=== PATIENT | female | born 1980 | race Caucasian/White ===

== ENCOUNTER 2019-10-11 21:09 | Inpatient (IN) | payer BC ==
[2019-10-11 21:38] VITALS: BMI 39.0
--- NOTE | 2019-10-11 22:05 | PDOC.LDHP ---
Labor and Delivery H&P HPI: Patient of Dr hale CC: Possible LOF since 0900 on/off 38 yo HX CS X 1 for failed induction. Weight was 9pounds. GDM diet controlled. Few contractions. Desires trial of labor if possible nut ok with repeat CS Review of Systems: complete ROS performed and negative as per HPI Current gestational age (weeks): 38 (4) Due date: 10/21/19 Dating criteria: last menstrual period Grav: 2 Para: 1 OB History Details: CS for suspected macrosomia and failed IOL, postrdates Current complications: gestational diabetes (A1DM) Abnormal US findings: No Current medications: pre- vitamins Previous surgical history: low tranverse CS Allergies/Adverse Reactions: Allergies Allergy/AdvReac Type Severity Reaction Status Date / Time amoxicillin Allergy Mild Rash Verified 10/11/19 21:28 Social history: none - Physical Exam Vital signs reviewed and normal: yes Abnormal vital signs: 148/90s General: NAD Heart: RRR Lungs: CTAB Abdomen: gravid Extremeties: no edema FHT: category 1 [place] contractions every: none - Vaginal Exam cm dilated: 1 Effacement: 25% Station: -3 - Assessment Suspected PROM at early term. GDM, HX macrosomia with last child 9 pounds by CS. Elevated BPs - Plan Plan: other (Discussed TOLAC vs Repeat CS. Reviewed ACOD data and inability to predict macrosomia well. SD as consequence also discussed due to her GDM. BPs also hihgh so we will check CMP, as well. Sterile Spec exam is positive for ROM by me. Amnisure still sent for protocol. Admit and patient agrees to repeat CS as not ion labor and some concern about EFW. Pt last ate at 1800. Notify Dr hale of admission.)
[2019-10-11 22:11] LABS: Amnisure Test RUPTURE DETECTED (No Rupture)
[2019-10-11 22:12] LABS: Amnisure Internal Control QC ACCEPTABLE (ACCEPTABLE)
[2019-10-11] MEDS ORDERED: Butorphanol Tartrate 1 MG/ML VIAL SLOW IVP PRN (22:13)
[2019-10-11] MEDS ORDERED: hydrALAZINE 20 MG/ML VIAL SLOW IVP PRN (22:13)
[2019-10-11] MEDS ORDERED: Promethazine HCl 25 MG/ML VIAL IM PRN ×2 (22:13→23:31)
[2019-10-11] MEDS ORDERED: Ondansetron PF 4 MG/2 ML Vial IVP PRN (22:13)
[2019-10-11] MEDS ORDERED: Lactated Ringer's 1,000 ML IV SCH (22:15)
[2019-10-11] MEDS ORDERED: Bicitra 30 ML UDCUP PO SCH (22:15)
[2019-10-11] MEDS ORDERED: Azithromycin 500 MG in Sodium Chloride 0.9% 250 ML 250 ML IVPB SCH (22:15)
[2019-10-11] MEDS ORDERED: CEFAZOLIN 2 GM in Premix Bag 1 BAG IVPB SCH (22:15)
--- NOTE | 2019-10-11 22:19 | PDOC.EVN ---
Event Note - Event Note Event Note: GBS positive: will give ABX as preop prophylaxis. Amoxcillin caused rash as child...ok for Ancef and Zmax. So, issues identified: 1. PROM...early term 2. GDM...A1DM 3. Suspected macrosomia with EFW is heavier than last child per patient estimate. 4. PIH Although TOLAC is option, may be that repeat CS is most conservative due to above factors. Patient agrees.
[2019-10-11] MEDS ORDERED: Fentanyl 100 MCG/2 ML VIAL ONE (22:39)
[2019-10-11] MEDS ORDERED: MORPHINE 5 MG/10 ML PF VIAL ONE (22:39)
[2019-10-11] MEDS ORDERED: EPHEDRINE 25 MG/5 ML SYRINGE ONE (22:40)
[2019-10-11] MEDS ORDERED: Oxytocin 10 UNITS/ML VIAL ONE (22:41)
[2019-10-11] MEDS ORDERED: Dexamethasone 4 mg/ml Vial ONE (22:41)
[2019-10-11] MEDS ORDERED: Ondansetron PF 4 MG/2 ML Vial ONE (22:41)
[2019-10-11] MEDS ORDERED: PHENYLEPHRINE-NS 100 MCG/ML 10 ML SYRINGE ONE (22:41)
[2019-10-11] MEDS ORDERED: Ketorolac Tromethamine 30 MG/ML VIAL ONE (22:41)
[2019-10-11 22:46] LABS: Hemoglobin 12.8 g/dL (12.0-16.0); Mean Corpuscular HGB CONC 34.9 g/dL (32.0-36.0); Mean Corpuscular Hemoglobin 31.1 pg (27.0-31.0); Mean Corpuscular Volume 89.2 fL (78.0-98.0); Mean Platelet Volume 9.6 fL (7.4-10.4); Platelet Count 163 thou/uL (130-400); RBC Distribution Width 12.3 % (11.5-14.5); Red Blood Cell (RBC) Count 4.12 mill/uL (4.20-5.40); White Blood Cell (WBC) Count 12.9 thou/uL (4.8-10.8)
[2019-10-11 22:58] LABS: ALT (SGPT) 14 U/L (8-55); AST (SGOT) 16 U/L (5-34); Albumin 3.5 g/dL (3.5-5.0); Alkaline Phosphatase 115 U/L (40-110); Anion Gap 12 mmol/L (10-20); BUN (Urea Nitrogen) 11 mg/dL (7.0-18.7); Bilirubin, Total 0.2 mg/dL (0.2-1.2); Calc. Creatinine Clearance 207 mL/min (70-130); Calcium 8.8 mg/dL (7.8-10.44); Carbon Dioxide 20 mmol/L (22-29); Chloride 106 mmol/L (98-107); Estimated GFR-MDRD Greater than 90; Globulin 3.1 g/dL (2.4-3.5); Glucose 117 mg/dL (70-105); Potassium 3.4 mmol/L (3.5-5.1); Protein, Total 6.6 g/dL (6.0-8.3); Sodium 135 mmol/L (136-145)
--- NOTE | 2019-10-11 23:05 | PDOC.OPDEL ---
OB Operative/Delivery Note Delivery Dr/Surgeon: Basilio Assist: Juan Daniel, PGY 3 Pre-Delivery Diagnosis: ruptured membrane (prior CS x1 declines TOLAC) Procedure/Post Delivery Dx: repeat low transverse CS Weeks gestation: 38 Anesthesia: spinal - Findings A Sex: female - Additional Findings/Plan Placenta delivered: spontaneous findings: low transverse hysterotomy without extension, normal uterus, normal tubes, normal ovaries Post delivery plan: routine recovery
[2019-10-11 23:21] LABS: HBSAg Index 0.18 S/CO (0-0.99); HIV (1/2) Antibody/Antigen Non-Reactive (NonReactive); HIV 1/2 INDEX 0.24 S/CO (<1.00); Hep B Surf Ag Non-Reactive S/CO (NonReactive)
[2019-10-11] MEDS ORDERED: diphenhydrAMINE 50 MG/ML VIAL IVP PRN (23:31)
[2019-10-11] MEDS ORDERED: Ketorolac Tromethamine 30 MG/ML VIAL IVP PRN (23:31)
[2019-10-11] MEDS ORDERED: HYDROmorphone 2 MG/ML VIAL SLOW IVP PRN (23:31)
[2019-10-11] MEDS ORDERED: Naloxone HCl 0.4 mg/ml Vial IV PRN (23:31)
[2019-10-11] MEDS ORDERED: L&D-Morphine 4 MG/ML VIAL SLOW IVP PRN (23:31)
[2019-10-11] MEDS ORDERED: Naloxone HCl 0.4 mg/ml Vial IVP PRN ×2 (23:31)
[2019-10-11] MEDS ORDERED: Meperidine HCl/PF 25 MG/ML VIAL SLOW IVP PRN (23:31)
[2019-10-11] MEDS ORDERED: Promethazine HCl 25 MG SUPP PR PRN (23:31)
[2019-10-11] MEDS ORDERED: Communication Order-Pharmacy FS SCH (23:45)
[2019-10-11] MEDS ORDERED: Ketorolac Tromethamine 30 MG/ML VIAL IVP SCH (23:45)
[2019-10-11] MEDS ORDERED: Promethazine HCl 25 MG/ML VIAL ONE (23:49)
[2019-10-12 00:08] LABS: Syphilis Antibody Nonreactive (Nonreactive); Syphilis Antibody Index 0.06 S/CO (<1.00 Non-Reactive)
[2019-10-12] MEDS ORDERED: hydrALAZINE 20 MG/ML VIAL SLOW IVP PRN (01:47)
[2019-10-12] MEDS ORDERED: diphenhydrAMINE 25 MG CAP PO PRN (01:47)
[2019-10-12] MEDS ORDERED: Bisacodyl 10 MG SUPP PR PRN (01:47)
[2019-10-12] MEDS ORDERED: Promethazine HCl 25 MG/ML VIAL IM PRN (01:47)
[2019-10-12] MEDS ORDERED: Lanolin Ointment 7 GM TUBE TOP PRN (01:47)
[2019-10-12] MEDS ORDERED: Simethicone Chewable 80 MG TAB PO PRN (01:47)
[2019-10-12] MEDS ORDERED: Acetaminophen 325 MG TAB PO PRN (01:47)
[2019-10-12] MEDS ORDERED: HYDROcodone/Acetaminophen 5/325 mg Tablet PO PRN (01:47)
[2019-10-12] MEDS ORDERED: Ondansetron PF 4 MG/2 ML Vial IVP PRN (01:47)
[2019-10-12 05:37] LABS: Hemoglobin 11.5 g/dL (12.0-16.0); Mean Corpuscular HGB CONC 32.8 g/dL (32.0-36.0); Mean Corpuscular Hemoglobin 29.6 pg (27.0-31.0); Mean Corpuscular Volume 90.3 fL (78.0-98.0); Mean Platelet Volume 9.5 fL (7.4-10.4); Platelet Count 157 thou/uL (130-400); RBC Distribution Width 12.2 % (11.5-14.5); Red Blood Cell (RBC) Count 3.89 mill/uL (4.20-5.40); White Blood Cell (WBC) Count 16.8 thou/uL (4.8-10.8)
[2019-10-12] MEDS ORDERED: Adacel (T-DAP) 0.5 ML SYRINGE IM ONE (09:00)
[2019-10-12] MEDS: Ferrous Sulfate 325 MG TAB PO SCH ×2 (09:12→21:10)
[2019-10-12] MEDS: Prenatal Vitamin 1 TAB PO SCH (09:12)
[2019-10-12] MEDS: Docusate Calcium (SURFAK) 240 MG CAP PO SCH ×2 (09:13→21:11)
[2019-10-12] MEDS: HYDROcodone/Acetaminophen 5/325 mg Tablet PO PRN ×2 (16:24→21:11)
[2019-10-13] MEDS: HYDROcodone/Acetaminophen 5/325 mg Tablet PO PRN ×4 (03:18→19:49)
[2019-10-13] MEDS: Ibuprofen 800 MG TAB PO SCH ×3 (05:37→21:57)
[2019-10-13] MEDS: Prenatal Vitamin 1 TAB PO SCH (09:18)
[2019-10-13] MEDS: Docusate Calcium (SURFAK) 240 MG CAP PO SCH ×2 (09:18→19:47)
[2019-10-13] MEDS: Ferrous Sulfate 325 MG TAB PO SCH ×2 (10:59→22:05)
--- NOTE | 2019-10-13 12:22 | PDOC.PP ---
Post Progress Note Post Day #: 1 PO intake tolerated: yes Flatus: yes Ambulation: yes Vital Signs (12 hours) Temp Pulse Resp BP Pulse Ox 10/13/19 08:15 99.0 F 62 18 100/55 L 97 10/13/19 04:00 98.7 F 68 16 112/62 Weight Weight 242 lb - Physical Examination General: NAD Respiratory: non-labored breathing Abdominal: no distention, appropriately TTP Fundus firm & at: umb Skin: CS incision dry & intact, no rash Neurological: no gross focal deficits Psychiatric: normal affect Result Diagrams: 10/12/19 05:22 10/11/19 22:32 Additional Labs: Post Labs Blood Type B POSITIVE 10/12/19 00:40 Hep Bs Antigen Non-Reactive S/CO (NonReactive) 10/11/19 22:32 - Assessment/Plan POD1 s/p RCS VSSAF Met appropriate milestones Rh pos RImm Cont postop care, likely home tomorrow
[2019-10-14] MEDS: Ibuprofen 800 MG TAB PO SCH ×2 (06:37→13:17)
[2019-10-14] MEDS: Prenatal Vitamin 1 TAB PO SCH (08:03)
[2019-10-14] MEDS: Docusate Calcium (SURFAK) 240 MG CAP PO SCH (08:03)
[2019-10-14] MEDS: HYDROcodone/Acetaminophen 5/325 mg Tablet PO PRN (08:04)
[2019-10-14 08:18] VITALS: BP 121/69; TEMP 98.3
[2019-10-14] MEDS: Ferrous Sulfate 325 MG TAB PO SCH (09:27)
--- NOTE | 2019-10-14 12:45 | PDOC.PP ---
Post Progress Note Post Day #: 2 PO intake tolerated: yes Flatus: yes Ambulation: yes Vital Signs (12 hours) Temp Pulse Resp BP Pulse Ox 10/14/19 08:17 98.3 F 71 16 121/69 97 Weight Weight 242 lb - Physical Examination General: NAD Respiratory: non-labored breathing Abdominal: no distention, appropriately TTP Fundus firm & at: umb Skin: CS incision dry & intact (slight separation in mid incision about 1.5cm wide, 2mm height, very superficial, steristrip placed over area) Neurological: no gross focal deficits Psychiatric: normal affect Result Diagrams: 10/12/19 05:22 10/11/19 22:32 Additional Labs: Post Labs Blood Type B POSITIVE 10/12/19 00:40 Hep Bs Antigen Non-Reactive S/CO (NonReactive) 10/11/19 22:32 - Assessment/Plan POD2 s/p RCS VSSAF Met all postop milestones Pain controlled DC home FU 2 weeks
--- NOTE | 2019-10-17 21:18 | OP ---
DATE OF PROCEDURE: 10/11/2019 PREOPERATIVE DIAGNOSES: 1. Intrauterine at 38 weeks 4 days. 2. Gestational diabetes mellitus. 3. Prior x1. 4. Spontaneous rupture of membranes, declines trial of labor. POSTOPERATIVE DIAGNOSES: 1. Intrauterine at 38 weeks 4 days. 2. Gestational diabetes mellitus. 3. Prior x1. 4. Spontaneous rupture of membranes, declines trial of labor. PROCEDURE PERFORMED: Repeat low-transverse section via Pfannenstiel skin incision. ANESTHESIA: Spinal. WIRELESS WATCHER SURGEON: Kelly Frances MD, PGY-2 QUANTITATIVE BLOOD LOSS: 335 mL. COMPLICATIONS: None. DRAINS: Pardo catheter. PATHOLOGY: None. FINDINGS: Female infant, cephalic presentation, weighing 8 pounds 5 ounces. Clear amniotic fluid. Apgars 9 and 9. Hysterotomy without extension. Normal uterus, ovaries, and tubes bilaterally. DESCRIPTION OF PROCEDURE: The patient was taken to the operating room, where spinal anesthesia was obtained without difficulty. The patient was prepped and draped in a sterile fashion in the dorsal supine position with leftward tilt. After ensuring adequacy of anesthesia, a Pfannenstiel skin incision was made and carried down to the underlying subcutaneous tissue with a knife. The fascia was nicked in the midline with a knife and carried laterally with the Langley scissors. The superior aspect of the fascia was tented with 2 Kayden's and dissected off the rectus with the Langley's. The inferior aspect of the fascia was tented with 2 Kayden's and dissected off the rectus down to the pubic symphysis with the Langley's. The peritoneum was bluntly entered into and manually retracted. The Antonio O retractor was placed. The vesicouterine peritoneum was incised with the Metzenbaum and a bladder flap was created. The lower uterine segment was incised in a transverse fashion and extended with Leblanc maneuver. The 's head was brought to the hysterotomy and delivered atraumatically. The 's cord was clamped and handed to awaiting Ha team. The cord blood was obtained. The placenta was allowed to spontaneously deliver. The uterus was exteriorized, cleared of all clots and debris and the uterus was placed back into the abdomen. The hysterotomy was repaired with a #1 Monocryl in a running locking fashion with excellent hemostasis. The pelvis was irrigated and suctioned. Hemostasis was again noted to be excellent. The Antonio O retractor was removed. The rectus muscles were examined and noted to be hemostatic. The fascia was reapproximated with 0 PDS x2 sutures with excellent reapproximation. The subcutaneous tissue was irrigated and cauterized of any bleeders and reapproximated with a 2-0 plain gut in a running fashion. The skin was closed with 4-0 Monocryl in a subcuticular fashion. Dermabond was applied as well as pressure dressing. The patient tolerated the procedure well. Sponge, lap, and needle counts correct x2. The patient was taken to recovery in stable condition. The patient received Ancef 2 g and azithromycin 500 mg IV prior to the procedure. Job ID: [id number]
== END 2019-10-14 15:25 | disposition home or self-care (01) | DRG 788 ==
LOC: L&D/OP 21:09 → L&D 22:15 → 3SW 10-12 03:15
PROVIDERS: ADMIT Student in an Organized Health Care Education/Training Program; ATTEND Student in an Organized Health Care Education/Training Program
PROC: 10D00Z1 Extraction of Products of Conception, Low, Open Approach (ICD-10-PCS; principal; 2019-10-11)
DX: O24.420 Gestational diabetes mellitus in childbirth, diet controlled (principal); O34.211 Maternal care for low transverse scar from previous cesarean delivery; Z3A.38 38 weeks gestation of pregnancy; Z37.0 Single live birth
CPT/HCPCS: 36415; 51702; 80053; 84112; 85027; 86780; 86850; 86900; 86901; 87340; 87389; 99285; J0456; J0690; J1100; J1885; J2274; J2405; J2550; J2590; J3010; J7050

== ENCOUNTER 2020-12-16 14:39 | Outpatient (CLI) | payer BC | END 2020-12-16 14:40 | disposition home or self-care (01) | LOC: DTY/OP 14:39 | PROVIDERS: ATTEND Surgery | DX: E66.01 Morbid (severe) obesity due to excess calories (principal) | CPT/HCPCS: 97802 ==

== ENCOUNTER 2021-03-30 13:00 | Inpatient (IN) | payer BC ==
[2021-04-04 11:24] VITALS: BMI 40.6
[2021-04-06] MEDS ORDERED: Levofloxacin 500 mg/D5W 100 ml Premix Bag ONE (06:32)
[2021-04-06] MEDS ORDERED: Fentanyl 250 MCG/5 ML VIAL ONE (06:56)
[2021-04-06] MEDS ORDERED: SUGAMMADEX SODIUM 200 MG/2 ML VIAL ONE (06:56)
[2021-04-06] MEDS ORDERED: Lidocaine 4% Topical Sol 50 ML BOT ONE (06:57)
[2021-04-06] MEDS ORDERED: Lidocaine 1% w/Epinephrine 1:100K 20 ML VIAL ONE (06:58)
[2021-04-06] MEDS ORDERED: Bupivacaine 0.25% 10 ML VIAL ONE (06:58)
[2021-04-06] MEDS ORDERED: Lidocaine 1% PF 5 ML VIAL ONE (08:30)
[2021-04-06] MEDS ORDERED: PROPOFOL 200 MG/20 ML VIAL ONE (08:30)
[2021-04-06] MEDS ORDERED: Dexamethasone 20 MG/5 ML VIAL ONE (08:30)
[2021-04-06] MEDS ORDERED: Glycopyrrolate 0.2 MG/ML 5 ML SYRINGE ONE (08:30)
[2021-04-06] MEDS ORDERED: Rocuronium Bromide 10 MG/ML (10ML VIAL) ONE (08:30)
[2021-04-06] MEDS ORDERED: Ondansetron PF 4 MG/2 ML Vial ONE (08:30)
[2021-04-06] MEDS ORDERED: Ondansetron HCl/PF 4 MG/2 ML Vial IVP PRN (09:01)
[2021-04-06] MEDS ORDERED: Promethazine HCl 25 MG/ML VIAL IM PRN ×3 (09:01→15:13)
[2021-04-06] MEDS ORDERED: Promethazine HCl 25 MG/ML VIAL IVPB PRN (09:01)
[2021-04-06] MEDS ORDERED: diphenhydrAMINE 25 MG CAP PO PRN (09:51)
[2021-04-06] MEDS ORDERED: diphenhydrAMINE 50 MG/ML VIAL IVP PRN ×2 (09:51→15:13)
[2021-04-06] MEDS ORDERED: Ondansetron PF 4 MG/2 ML Vial IVP PRN ×2 (09:51→15:13)
[2021-04-06] MEDS ORDERED: Zolpidem Tartrate 5 MG TAB PO PRN (09:51)
[2021-04-06] MEDS ORDERED: HYDROmorphone 10 mg/100 ml CADD IVPB PRN (09:51)
[2021-04-06] MEDS ORDERED: Naloxone HCl 0.4 mg/ml Vial IV PRN (09:51)
[2021-04-06] MEDS ORDERED: diphenhydrAMINE 50 MG/ML VIAL IM PRN (09:51)
[2021-04-06] MEDS ORDERED: Communication Order-Pharmacy FS SCH (10:00)
[2021-04-06] MEDS ORDERED: Fentanyl 100 MCG/2 ML VIAL ONE ×3 (10:02→10:42)
[2021-04-06] MEDS ORDERED: Promethazine HCl 25 MG/ML VIAL ONE (10:02)
[2021-04-06] MEDS ORDERED: D5 1/2 NS w/20 mEq KCL 1,000 ML ONE (10:09)
[2021-04-06] MEDS ORDERED: HYDROmorphone 10 MG in Sodium Chloride 0.9% 95 ML IVPB PRN (10:30)
[2021-04-06] MEDS ORDERED: hydrALAZINE 20 MG/ML VIAL SLOW IVP PRN (15:13)
[2021-04-06] MEDS ORDERED: Dextrose 50% Abboject 50 ML SYRINGE SLOW IVP PRN (15:13)
[2021-04-06] MEDS ORDERED: Dextrose 5% in Water 1,000 ML IV PRN (15:13)
[2021-04-06] MEDS: D5 1/2 NS w/20 mEq KCL 1,000 ML IV SCH (16:24)
[2021-04-06] MEDS ORDERED: Enoxaparin Sodium 40 MG/0.4 ML SYRINGE SC SCH (21:00)
[2021-04-07] MEDS: D5 1/2 NS w/20 mEq KCL 1,000 ML IV SCH ×2 (00:03→04:44)
[2021-04-07 05:13] LABS: #Eosinphils 0.1 thou/uL (0.0-0.7); #Lymphocytes 2.4 thou/uL (1.20-3.40); #Monocytes 0.9 thou/uL (0.11-0.59); #Neutrophils 8.1 thou/uL (1.40-6.50); %Basophils 0.3 % (0.0-1.0); %Eosinophils 0.5 % (0.0-10.0); %Lymphocytes 20.7 % (21.0-51.0); %Monocytes 7.7 % (0.0-10.0); %Neutrophils 70.8 % (42.0-75.0); Hemoglobin 12.4 g/dL (12.0-16.0); Mean Corpuscular HGB CONC 32.7 g/dL (32.0-36.0); Mean Corpuscular Hemoglobin 30.2 pg (27.0-31.0); Mean Corpuscular Volume 92.3 fL (78.0-98.0); Mean Platelet Volume 8.1 fL (7.4-10.4); Platelet Count 289 thou/uL (130-400); Red Blood Cell (RBC) Count 4.12 mill/uL (4.20-5.40); White Blood Cell (WBC) Count 11.4 thou/uL (4.8-10.8)
[2021-04-07 05:31] LABS: Anion Gap 10 mmol/L (10-20); BUN (Urea Nitrogen) 5 mg/dL (7.0-18.7); Calc. Creatinine Clearance 182 mL/min (70-130); Calcium 9.2 mg/dL (7.8-10.44); Carbon Dioxide 27 mmol/L (22-29); Chloride 104 mmol/L (98-107); Glucose 115 mg/dL (70-105); Sodium 137 mmol/L (136-145)
[2021-04-07] MEDS ORDERED: Hydrocodone-Acetamin 15 ML UDCUP PO PRN (06:05)
[2021-04-07 07:39] VITALS: BP 124/81; TEMP 98.7
[2021-04-07] MEDS ORDERED: Pantoprazole 40 MG VIAL IVP SCH (09:00)
== END 2021-04-07 11:23 | disposition home or self-care (01) | DRG 621 ==
LOC: SURG A 04-06 06:16
PROVIDERS: ADMIT Surgery; ATTEND Surgery
PROC: 0DB64Z3 Excision of Stomach, Percutaneous Endoscopic Approach, Vertical (ICD-10-PCS; principal; 2021-04-06)
PROC: 0BQT4ZZ Repair Diaphragm, Percutaneous Endoscopic Approach (ICD-10-PCS; 2021-04-06)
DX: E66.01 Morbid (severe) obesity due to excess calories (principal); Z20.822 Contact with and (suspected) exposure to COVID-19; K44.9 Diaphragmatic hernia without obstruction or gangrene; F17.210 Nicotine dependence, cigarettes, uncomplicated; Z68.41 Body mass index [BMI] 40.0-44.9, adult; Z88.1 Allergy status to other antibiotic agents
CPT/HCPCS: 36415; 71046; 80048; 80053; 83036; 84703; 85025; 88307; 93005; C9113; J0360; J1100; J1650; J1956; J2405; J2550; J2704; J3010; J3480; S0020; U0003; U0005

== ENCOUNTER 2021-04-03 12:53 | Outpatient (CLI) | payer BC ==
[2021-04-03 13:59] LABS: #Eosinphils 0.2 10x3/uL (0.0-0.5); #Monocytes 0.7 10x3/uL (0.0-1.1); #Neutrophils 5.7 10x3/uL (1.5-8.4); %Basophils 0.5 % (0.0-2.0); %Eosinophils 1.9 % (0.0-6.0); %Lymphocytes 24.8 % (18.0-47.0); %Monocytes 7.4 % (0.0-10.0); %Neutrophils 64.9 % (40.0-75.0); Hemoglobin 12.6 g/dL (12.0-15.5); Mean Corpuscular HGB CONC 32.7 g/dL (32.0-36.0); Mean Corpuscular Hemoglobin 29.7 pg (27.0-33.0); Mean Corpuscular Volume 90.8 fl (81.6-98.3); Mean Platelet Volume 10.7 fl (7.4-10.4); Platelet Count 294 10x3/uL (150-450); RBC Distribution Width 13.9 % (11.5-14.5); Red Blood Cell (RBC) Count 4.24 10x6/uL (3.90-5.03); White Blood Cell (WBC) Count 8.8 10x3/uL (3.5-10.5)
[2021-04-03 14:19] LABS: ALT (SGPT) 36 U/L (8-55); AST (SGOT) 31 U/L (5-34); Albumin 4.5 g/dL (3.5-5.0); Alkaline Phosphatase 71 U/L (40-110); Anion Gap 13 mmol/L (10-20); BUN (Urea Nitrogen) 17 mg/dL (7.0-18.7); Bilirubin, Total 0.3 mg/dL (0.2-1.2); Calc. Creatinine Clearance 0 mL/min (70-130); Calcium 9.1 mg/dL (7.8-10.44); Carbon Dioxide 23 mmol/L (22-29); Chloride 104 mmol/L (98-107); Globulin 3.5 g/dL (2.4-3.5); Glucose 77 mg/dL (70-105); Potassium 3.5 mmol/L (3.5-5.1); Sodium 136 mmol/L (136-145)
[2021-04-03 14:24] LABS: BHCG - Serum Negative (NEGATIVE); Pregs Control Background? CLEAR/WHITE (CLR/WHITE); Pregs Control Bar Appear? YES (CONTROL BAR)
[2021-04-03 18:08] LABS: Hemoglobin A1c 4.9 % (4.0-6.0)
[2021-04-04 11:03] LABS: SARS-CoV-2 PCR by NAA Not Detected (NotDetected)
== END 2021-04-03 12:54 | disposition home or self-care (01) ==
LOC: LABBT 12:53
PROVIDERS: ATTEND Surgery
DX: Z01.818 Encounter for other preprocedural examination (principal); E66.01 Morbid (severe) obesity due to excess calories; Z20.822 Contact with and (suspected) exposure to COVID-19
CPT/HCPCS: 71046; 80053; 83036; 84703; 85025; 93005; 93010; U0003; U0005